=== PATIENT | male | born 1990 | race African-American/Black ===

== ENCOUNTER 2016-11-24 05:49 | Emergency (ER) | payer SELFPAY ==
[~2016-11-24] VITALS: Ht 177.8 cm; Wt 97.0 kg
[2016-11-24] MEDS ORDERED: ONDANSETRON HCL 4MG/2ML VIAL IV ONE (07:00)
[2016-11-24] MEDS ORDERED: KETAMINE HCL 50 MG/ML 10ML IV ONE (07:00)
[2016-11-24] MEDS ORDERED: PROPOFOL 200MG/20ML VIAL IV ONE (07:00)
[2016-11-24 11:00] VITALS: BP 128/60
== END 2016-11-24 13:07 | disposition home or self-care (01) ==
LOC: ER 05:49
DX: S82.401A Unspecified fracture of shaft of right fibula, initial encounter for closed fracture (principal); S93.04XA Dislocation of right ankle joint, initial encounter; F17.200 Nicotine dependence, unspecified, uncomplicated; X58.XXXA Exposure to other specified factors, initial encounter; Y93.83 Activity, rough housing and horseplay; Y92.89 Other specified places as the place of occurrence of the external cause; Y99.8 Other external cause status
CPT/HCPCS: 27840; 73590; 73600; 73610; 73620; 93005; 96374; 99152; 99285; 99406; J2405; J3490; J7030; Z7610; J2704